=== PATIENT | female | born 1945 | race African-American/Black ===

== ENCOUNTER 2017-01-29 09:52 | Outpatient (RCR) | payer MEDICARE, BC ==
[~2017-01-29 09:52] MED LIST: ASPIRIN81 MG ORAL; ATENOLOL100 MG ORAL; CATAPRES0.2 MG ORAL; MACROBID100 MG ORAL; MELOXICAM15 MG PO; MICARDIS HCT 81 EACH ORAL; PRAVASTATIN SOD40 M1 ORAL; TYLENOL650 MG/20. ORAL; VERAPAMIL HCL360 MG PO
== END 2017-01-30 | disposition home or self-care (01) ==
LOC: PTY 09:52
DX: M48.061 Spinal stenosis, lumbar region without neurogenic claudication (principal)
CPT/HCPCS: 97110; 97140; 97162; G0283; G8981; G8982

== ENCOUNTER 2017-02-14 09:45 | Outpatient (RCR) | payer MEDICARE, BC | END 2017-03-02 | disposition home or self-care (01) | LOC: PTY 09:45 | DX: M48.061 Spinal stenosis, lumbar region without neurogenic claudication (principal) | CPT/HCPCS: 97110; 97140; G0283 ==